=== PATIENT | male | born 1970 | race Caucasian/White ===

== ENCOUNTER → 2019-04-13 | Day surgery (SDC) | payer BC ==
[~2019-04-13] MED LIST: ATOR10TA60 PO; IV RINGERS,LACTATED 1000ML 1,000 ML IV ONE; LIDOCAINE 2% PF 5 ML VIAL. ONE; LISI-334 PO; PANT20TA2 PO; POLY17PO29 PO; PROPOFOL 20 ML IV ONE; RANI150T2 PO; SLIPPERY ELM BARK
[2019-04-13 14:55] VITALS: BP 130/66
--- NOTE | 2019-04-14 18:06 | PATHOLOGY ---
[facility] Accession Number: [id number] . 01 Material submitted: . esophagus - DISTAL ESOPHAGEAL BX. Modifiers: distal . 01 Clinical history: . GERD . 02 Diagnosis: Esophageal biopsies, distal esophagus: - Segments of hyperplastic squamous esophageal mucosa showing focal chronic inflammation, consistent with reflux esophagitis. . (JPM:mml; 04/14/2019) [facility]/04/14/2019 . 02 Comment: Sections of the distal esophagus biopsy reveal segments of tangentially-oriented hyperplastic squamous esophageal mucosa showing focal chronic inflammation. The findings are consistent with reflux esophagitis. There is no evidence of Kearns's change, dysplasia or malignancy. . (JPM:mml; 04/14/2019) . 02 Electronically signed: . Jono Gregg MD, Pathologist NPI- [id number] . 01 Gross description: . Received in formalin labeled "Zachi, Demetri, distal esophageal BX," are 4 segments of callahan soft tissue measuring 1.1 x 0.5 x 0.1 cm in aggregate dimensions and ranging from 0.3 to 0.6 cm in maximum dimension. The specimen is submitted entirely in cassette A1. (TSD; 04/13/2019) TOB/TOB . 02 Pathologist provided ICD-10: K21.0 . 02 CPT . 956557 Specimen Comment: A courtesy copy of this report has been sent to Specimen Comment: [phone], . Specimen Comment: Report sent to and Performed at: 01 [facility] [address], [place], [place] [id number] MD Sohan Sarabia MD Phone: [phone] Performed at: 02 [facility] [address] [place], [place] [id number] MD Jono Gregg MD Phone: [phone]
== END ==
LOC: ENDOS 12:56
PROVIDERS: ATTEND Internal Medicine Gastroenterology
DX: K21.0 Gastro-esophageal reflux disease with esophagitis (principal); F32.9 Major depressive disorder, single episode, unspecified; E78.00 Pure hypercholesterolemia, unspecified; F15.90 Other stimulant use, unspecified, uncomplicated; Z72.89 Other problems related to lifestyle; Z72.0 Tobacco use; Z98.890 Other specified postprocedural states
CPT/HCPCS: 43239; 88305; J2001; J2704